=== PATIENT | female | born 1955 | race African-American/Black ===

== ENCOUNTER 2019-03-17 08:32 | Emergency (ER) | payer MEDICAID ==
[~2019-03-17] VITALS: Ht 160 cm; Wt 103.2 kg
[~2019-03-17 08:32] MED LIST: AMLO10TA8 PO; ASPI-515 PO; DIPH12.532 PO; HYDR-3343 PO; HYDR12.517 PO; IBUP-1222 PO; LISI40TA PO; LORA-247 PO; OMEP10CA4 PO; PRAZ5CAP2 PO; PROP20TA PO; SERT100T32 PO
--- NOTE | 2019-03-17 08:45 | NUR ---
PT TO ROOM 1 VIA WHEELCHAIR WITH DAUGHTER. PT C/O HERNÁNDEZ, DIZZY, NVD, CP WITH COUGH X 9 DAYS, NONCOMPLIANT W/BP MEDS, +SMOKER. PT AAO X 4, DRESSED IN GOWN AND ATTACHED TO MONITOR, ON ROOM AIR, HYPERTENSIVE WITH SBP 187. MD AWARE AND AT BEDSIDE FOR EXAM. NEW ORDERS RECEIVED.
[2019-03-17 09:26] LABS: MEAN CORPUSCULAR HEMOGLOBIN 30.5 pg (27.0-34.8); MEAN CORPUSCULAR HGB CONC 33.4 g/dL (32.4-35.8); MEAN CORPUSCULAR VOLUME 91.4 fL (80-100); MEAN PLATELET VOLUME 7.5 fL (7.4-10.4); PLATELET COUNT 257 x10^3/uL (130-400); RED BLOOD COUNT 4.11 x10^6/uL (3.82-5.3); RED CELL DISTRIBUTION WIDTH 13.9 % (9.6-15.2)
[2019-03-17] MEDS ORDERED: LISINOPRIL 20 MG TABLET ONE (09:28)
[2019-03-17] MEDS ORDERED: ALBUTEROL SULFATE 2.5 MG/3 ML NPPB ONE (09:30)
[2019-03-17] MEDS ORDERED: LISINOPRIL 20 MG TABLET PO ONE (09:30)
[2019-03-17] MEDS ORDERED: ALBUTEROL SULFATE 2.5 MG/3 ML ONE (09:30)
[2019-03-17 09:34] LABS: ALANINE AMINOTRANSFERASE 37 U/L (12-78); ANION GAP 8 mmol/L (5-15); CALCIUM 8.8 mg/dL (8.5-10.1); CHLORIDE 107 mmol/L (98-107); CREATININE 0.91 mg/dL (0.55-1.02)
--- NOTE | 2019-03-17 09:34 | NUR ---
PT MEDICATED PER NOV, RT AT BEDSIDE FOR BREATHING TX.
[2019-03-17 09:38] LABS: ALKALINE PHOSPHATASE 113 U/L (45-117); BILIRUBIN,TOTAL 0.4 mg/dL (0.2-1.0); TOTAL PROTEIN 7.1 g/dL (6.4-8.2)
--- NOTE | 2019-03-17 10:18 | NUR ---
PT ASLEEP, VSS.
[2019-03-17 10:20] LABS: MD YES
[2019-03-17 10:22] LABS: <PLATELET ESTIMATE> ADEQUATE; <PLT MORPHOLOGY> NORMAL PLT MORPH; <RBC MORPHOLOGY> NORMAL; EOS#(MANUAL) 0.32 x10^3/uL (0.0-0.4); EOS% (MANUAL) 6 % (1-7); LYMPH#(MANUAL) 2.97 x10^3/uL (1-3.4); LYMPHS% (MANUAL) 55 % (22-44); MONOS#(MANUAL) 0.32 x10^3/uL (0.3-2.7); MONOS% (MANUAL) 6 % (2-9); SEG#(MANUAL) 1.78 x10^3/uL (1.8-6.8); SEGS% (MANUAL) 33 % (42-75)
[2019-03-17 10:40] VITALS: BP 162/79
--- NOTE | 2019-03-17 10:41 | NUR ---
Patient/Caregiver given discharge instructions and they have confirmed that they understand the instructions. Patient escorted out via wheelchair.
== END 2019-03-17 10:42 | disposition home or self-care (01) ==
LOC: ED 10:29
DX: J96.01 Acute respiratory failure with hypoxia (principal); J44.1 Chronic obstructive pulmonary disease with (acute) exacerbation; R51 Headache; R42 Dizziness and giddiness; R11.2 Nausea with vomiting, unspecified; I10 Essential (primary) hypertension; F17.200 Nicotine dependence, unspecified, uncomplicated
CPT/HCPCS: 36415; 71045; 80053; 83880; 85025; 93005; 94640; 99291; J7512

== ENCOUNTER 2019-08-13 11:40 | Emergency (ER) | payer MEDICAID ==
[~2019-08-13] VITALS: Ht 160 cm; Wt 92.9 kg
[~2019-08-13 11:40] MED LIST changes: +LISI2.5T PO; -OMEP10CA4 PO; +OMEP10CA5 PO
[2019-08-13] MEDS ORDERED: AMLODIPINE 5 MG TABLET PO ONE (12:00)
[2019-08-13 12:18] LABS: BASOPHILS # (AUTO) 0.03 x10^3/uL (0-0.1); BASOPHILS % (AUTO) 1 % (0-1); EOSINOPHILS # (AUTO) 0.14 x10^3/uL (0-0.4); EOSINOPHILS % (AUTO) 2 % (1-7); LYMPHOCYTES # (AUTO) 3.14 x10^3/uL (1-3.4); LYMPHOCYTES % (AUTO) 45 % (22-44); MD NO; MEAN CORPUSCULAR HEMOGLOBIN 31.8 pg (27.0-34.8); MEAN CORPUSCULAR HGB CONC 33.7 g/dL (32.4-35.8); MEAN CORPUSCULAR VOLUME 94.4 fL (80-100); MEAN PLATELET VOLUME 8.4 fL (7.4-10.4); MONOCYTES # (AUTO) 0.66 x10^3/uL (0.2-0.8); MONOCYTES % (AUTO) 9 % (2-9); NEUTROPHILS # (AUTO) 3.02 x10^3/uL (1.8-6.8); NEUTROPHILS % (AUTO) 43 % (42-75); PLATELET COUNT 236 x10^3/uL (130-400); RED BLOOD COUNT 4.17 x10^6/uL (3.82-5.3); RED CELL DISTRIBUTION WIDTH 14.4 % (9.6-15.2)
[2019-08-13 12:31] LABS: ALBUMIN 3.2 g/dL (3.4-5.0); ANION GAP 7 mmol/L (5-15); CALCIUM 9.1 mg/dL (8.5-10.1); CHLORIDE 108 mmol/L (98-107)
[2019-08-13] MEDS ORDERED: AMLODIPINE 5 MG TABLET ONE (12:31)
[2019-08-13 12:32] LABS: CREATININE 0.98 mg/dL (0.55-1.02)
[2019-08-13] MEDS ORDERED: HYDROcodone/APAP 5/325 TABLET ONE (12:59)
[2019-08-13] MEDS ORDERED: COLCHICINE 0.6 MG CAPSULE ONE (12:59)
[2019-08-13] MEDS ORDERED: COLCHICINE 0.6 MG CAPSULE PO ONE (13:00)
[2019-08-13] MEDS ORDERED: HYDROcodone/APAP 5/325 TABLET PO ONE (13:00)
--- NOTE | 2019-08-13 13:26 | NUR ---
PT RESTING IN BED, CONTINUES TO BE HYPERTENSIVE. EXPRESSES MODERATE RELIEF WITH PAIN MEDICATION. ERP AT BEDSIDE AT THIS TIME. CALL LIGHT IN REACH.
[2019-08-13 13:29] VITALS: BP 191/121
== END 2019-08-13 14:29 | disposition home or self-care (01) ==
LOC: ED 12:10
DX: M10.071 Idiopathic gout, right ankle and foot (principal); I10 Essential (primary) hypertension; J44.9 Chronic obstructive pulmonary disease, unspecified; Z86.19 Personal history of other infectious and parasitic diseases
CPT/HCPCS: 36415; 80048; 82040; 84550; 85025; 93005; 99284